=== PATIENT | female | born 1955 | race Caucasian/White ===

== ENCOUNTER → 2021-10-01 | Outpatient (CLI) | payer BC | LOC: KOH-I 09-11 13:30 | DX: R91.8 Other nonspecific abnormal finding of lung field (principal) | CPT/HCPCS: 71250 ==

== ENCOUNTER → 2021-10-06 | Outpatient (CLI) | payer BC | LOC: HEART 5 14:17 | DX: R07.89 Other chest pain (principal); M19.90 Unspecified osteoarthritis, unspecified site; J30.9 Allergic rhinitis, unspecified; K25.9 Gastric ulcer, unspecified as acute or chronic, without hemorrhage or perforation; Z00.00 Encounter for general adult medical examination without abnormal findings | CPT/HCPCS: 94010 ==